=== PATIENT | male | born 1990 | race Two or more races ===

== ENCOUNTER 2025-08-14 12:09 | Emergency (ER) | payer MEDICAID, SELFPAY ==
[2025-08-14 12:24] VITALS: BP 133/85; PULSE 72; RESP 16; TEMP 36.8; O2SAT 100
--- NOTE | 2025-08-14 12:28 | EDNOTE_ITS ---
<Statement entered by Janice Higuera MD - 08/15/25 14:32> As co-signing physician, I was present and available for consult prn. I concur with the plan and care as documented by the midlevel provider. Lower Extremity Injury RME/HPI General Chief Complaint: Ankle/Foot Injury Stated Complaint: GLASS WENT INTO R) FOOT, NOT FEELING WELL Time Seen by Provider: 08/14/25 12:16 Arrival date/time: 08/14/25 12:09 RME / HPI RME / HPI Narrative: 35-year-old patient presents emergency department with complaint of puncture wound of right foot patient states he was wearing his shoes when he stepped on glass and noticed a glass penetrated through his shoe and into his foot. This occurred 2 days ago. Patient said he presents emergency department today due to the continued pain. He is unsure of his last tetanus. Patient also states he is not diabetic. Related Data Home Medications ?Medication ?Instructions ?Recorded ?Confirmed NO HX MEDS ##0 03/27/15 Previous Rx's ?Medication ?Instructions ?Recorded ciprofloxacin HCl 500 mg tablet 500 mg PO BID 7 days # 14 tabs 08/14/25 ibuprofen 800 mg tablet 800 mg PO TID 10 days #30 ta bs 08/14/25 Allergies Allergy/AdvReac Type Severity Reaction Status Date / Time No Known Allergies Allergy Verified 08/14/25 12:13 Review of Systems Review of Systems Systems Reviewed: All systems reviewed, normal except as documented Constitutional Constitutional: Reports system reviewed and no additional complaints, except as documented Cardiovascular Cardiovascular: Reports system reviewed and no additional complaints, except as documented Respiratory Respiratory: Reports system reviewed and no additional complaints, except as documented Genitourinary Genitourinary: Reports system reviewed and no additional complaints, except as documented Musculoskeletal Musculoskeletal: Reports system reviewed and no additional complaints, except as documented Integumentary/Breasts Skin/Breast: Reports system reviewed and no additional complaints, except as documented Neurologic Neurologic: Reports system reviewed and no additional complaints, except as documented ED Exam General General appearance: Present alert and in no apparent distress Head Head exam: Present atraumatic and normocephalic ENT ENT exam: Present normal exam and normal oropharynx Chest Chest inspection: Present normal inspection Respiratory Respiratory exam: Present normal lung sounds bilaterally Cardiovascular Cardiovascular exam: Present regular rate Expanded Lower Extremity Exam Bottom foot image: 2 1. puncture wound Neurological Exam Neurological exam: Present alert and oriented X3 Psychiatric Psychiatric exam: Present normal affect Skin Skin exam: Present warm Course Quality Measures none Orders Category Date Time Status HYDROcodone*/APAP 5/325 [[place] 5/325] Med 08/14/25 12:29 Discontinued 1 tab PO X1 ONE TET,DIP/PERT AC (Adult)-Tdap [Boostrix Adult (Tdap) Med 08/14/25 12:29 Discontinued Vacc] 0.5 ml IMI .ONCE ONE cefTRIAXone [Rocephin] 1,000 mg Med 08/14/25 12:29 Discontinued Lidocaine 1% 20 ml [Xylocaine 1% 20 ML] 2.1 ml IM X1 Vital Signs Vital signs: Vital Signs Temperature 98.2 F 08/14/25 12:24 Pulse Rate 72 08/14/25 12:24 Respiratory Rate 16 08/14/25 12:24 Blood Pressure 133/85 H 08/14/25 12:24 Pulse Oximetry (%) 100 08/14/25 12:24 Oxygen Delivery Method Room Air 08/14/25 12:24 Extremity Injury, Lower MDM Narrative MDM Narrative:: 35-year-old patient presents emergency department with complaint of right foot pain status post glass puncturing his shoe and piercing his right foot. Patient is unsure of his last tetanus immunization. Patient's diagnosis updated and patient received a dose of antibiotic in ED and DC'd home with oral antibiotic. Injury shows no signs of secondary infection. Patient data External records reviewed:: None Clinical information provided by:: patient Social determinants that could affect healthcare access:: none Patient has the following chronic illnesses:: na How is presenting disease/condition affected by chronic disease/condition?: no chronic disease Evaluation data The following diagnostics were reviewed and interpreted by me:: other (specify) Lab and/or radiology exams considered but not ordered:: na Interpretation Summary: na Medications / Prescriptions Medications or Prescriptions considered but not ordered:: Medications and prescription considered and ordered Medication administrations:: Medication Administration History Discontinued Medications Hydrocodone Bitart/Acetaminophen (Hydrocodone/[place] 5/325 Tablet) 1 tab PO X1 ONE Stop: 08/14/25 12:30 Last Admin: 08/14/25 13:14 Dose: 1 tab Documented By: SULY Ceftriaxone Sodium 1,000 mg/ (Lidocaine HCl 2.1 ml) 0 mg IM X1 ONE Stop: 08/14/25 12:30 Last Admin: 08/14/25 13:17 Dose: 1,000 mg Documented By: SULY Diphtheria/Tetanus/Acell Pertussis (Diphth,Pertuss(Acell),Tet Vac 0.5 Ml Syr- Adult) 0.5 ml IMi .ONCE ONE Stop: 08/14/25 12:30 Last Admin: 08/14/25 13:15 Dose: 0.5 ml Documented By: SULY per above Consultations Consultation(s) initiated? (list below): No Diagnosis Extremity Injury, Lower Differential Diagnosis: ankle sprain and strain, acute internal derangement of knee and ankle fracture Most likely diagnosis given after review of the tests above:: Puncture wound of right foot Admission Indicated Admission indicated?: not indicated Explain why admission is indicated or not indicated:: na Admission Request Was there a request for admission?: No Disposition Plan Disposition Plan: Discharge Discharge Attestation Discharge Attestation: The patient and all family members were given an opportunity to ask questions and understood the discharge instructions. Discharge instructions specifically effects, indications for sooner follow up or return to the emergency department, and the expected course of current diagnosis. Patient condition: Stable Discharge Plan Plan Patient Disposition: HOME (Self Care) Prescriptions/Referrals Prescriptions/Med Rec: New ibuprofen 800 mg tablet 800 mg PO TID 10 Days Qty: 30 0RF ciprofloxacin HCl 500 mg tablet 500 mg PO BID 7 Days Qty: 14 0RF No Action NO HX MEDS Qty: 0 Problem List Clinical Impression: Puncture wound of right foot Patient/Caregiver Discharge Instructions Education Materials: ED Puncture Wound (Foot) Print Language: Nigerien Stand Alone Forms: Adri Award Info., Patient Portal Info Letter
[2025-08-14] MEDS: HYDROcodone/APAP 5/325 TABLET 1 TAB PO (13:14)
[2025-08-14] MEDS: DIPHTH,PERTUSS(ACELL),TET VAC 0.5 ML SYR- ADULT IMi (13:15)
[2025-08-14] MEDS: cefTRIAXone 1,000 MG, LIDOCAINE 1% 20 ML 2.1 ML IM (13:17)
== END 2025-08-14 13:56 | disposition home or self-care (01) ==
PROVIDERS: Emergency Provider Emergency Medicine
DX: S91.331A Puncture wound without foreign body, right foot, initial encounter (principal); W25.XXXA Contact with sharp glass, initial encounter; Z23 Encounter for immunization
CPT/HCPCS: 90471; 90715; 96372; 99283; J0696; J3490; A9270